=== PATIENT | male | born 2000 | race Caucasian/White ===

== ENCOUNTER 2024-03-01 19:44 | Emergency (ER) | payer SELFPAY ==
--- NOTE | 2024-03-01 20:04 | ED Physician Documentation ---
PD HPI SKIN - Stated complaint Stated Complaint: R THUMB LAC - Chief complaint Chief Complaint: Laceration - Additional information Additional information: 24-year-old male unsure if he is up-to-date with tetanus shot presents emergency department for left thumb laceration. Patient said that his birthday is today he does appear to be intoxicated says that he excellently broke a plate over his left thumb. Bleeding is well-controlled he has full range of motion is having just prior to arrival. PD PAST MEDICAL HISTORY - Past Medical History Past Medical History: No - Past Surgical History Past Surgical History: No - Present Medications Home Medications: Ambulatory Orders Medication Instructions Recorded Confirmed cephALEXin [Keflex] 500 mg PO Q6H 5 Days #28 cap 03/01/24 - Allergies Allergies/Adverse Reactions: Allergies Allergy/AdvReac Type Severity Reaction Status Date / Time No Known Drug Allergies Allergy Verified 03/01/24 19:48 - Social History Does the pt smoke?: Yes Smoking Status: Former smoker Does the pt drink ETOH?: Yes Does the pt have substance abuse?: No - Immunizations Immunizations are current?: No - POLST Patient has POLST: No PD ED PE NORMAL - Vitals Vital signs reviewed: Yes - General General: Alert and oriented X 3, No acute distress, Well developed/nourished, Other (appears intoxicated) - Derm Derm: Other (left thumb laceration over the volar aspect, no involving fingernail, does go over the joint.) - Extremities Extremities: Other (left thumb: full ROM, no tendon involvement.) Results - Vitals Vitals: Vital Signs - 24 hr 03/01/24 03/01/24 19:48 22:04 Temperature 36.5 C 36.2 C L Heart Rate 100 88 Respiratory 16 16 Rate Blood Pressure 140/88 H 126/68 O2 Saturation 100 98 Oxygen O2 Source Room air Procedures - Laceration (location) left thumb laceration Length in cm: 12 (flap laceration over volar aspect of left thumb) Wound type: Curved, Flap, Into subcut fat, Clean Neurovascular status: Sensory intact, Motor intact Tendon involvement: Tendon intact Anesthesia: Lidocaine 2% Wound preparation: Hibiclens, Irrigated copiously NS, Wound explored, To the base Skin layer closure: Nylon, Interrupted, Size #-0 - enter number (4-0), Sutures - enter # (9) Other: No complications, Neurovascular intact, Tetanus booster given, Other (pt had multiple episodes of near vasovagal and nausea) PD Medical Decision Making - ED course ED course: Wound inspected under direct bright light with good visualization. Area with curved laceration across soft tissue through adipose without exposure of muscle belly or tendon. No overt foreign body. Area hemostatic. Considered doing an x- ray but patient declined and said that he wanted to hold off on x-rays and says that he is confident that there is no bony involvement of the laceration he has full range of motion and does not appear to have affected the tendons. Neurovascular exam congruent with above. Area extensively irrigated with sterile normal saline under pressure. Laceration repaired in simple fashion with 9 sutures And was started on Keflex due to the type of wound. (please see procedure note for further details). Patient Had a difficult time tolerating the procedure requiring multiple breaks multiple vasovagal episodes of nausea vomiting due to alcohol intoxication and He was neurovascularly intact and unchanged post repair with intact distal pulses and cap refill. Cautious return precautions discussed w/ full understanding. Wound care discussed. Prompt follow up with primary care physician discussed and return for suture removal in 14 days. And prescription of Keflex was sent to his preferred pharmacy. Departure - Departure Disposition: 01 Home, Self Care Clinical Impression: Finger laceration Instructions: ED Laceration All Prescriptions: cephALEXin [Keflex] 500 mg PO Q6H 5 Days #28 cap Comments: Come back for any signs of infection which would include: Redness, swelling, drainage, increased pain, or fevers. You can wash it soap and water. Keep it covered and moist with bacitracin ointment which is available over the counter; avoid neosporin. Follow-up with your physician in [] days for suture removal. Forms: PCP List Discharge Date/Time: 03/01/24 22:04
[2024-03-01] MEDS: TETANUS/DIPHTHERIA/PERTUSSIS 0.5 ML SYRINGE IM ONE (20:38)
[2024-03-01] MEDS ORDERED: LIDOCAINE-MPF 2% 5 ML VIAL ONE (20:44)
[2024-03-01] MEDS: ONDANSETRON ODT 4 MG TABLET TL STA (21:40)
[2024-03-01] MEDS: ACETAMINOPHEN 500 MG TABLET PO STA (21:40)
[2024-03-01] MEDS: cephALEXin 250 MG CAPSULE PO STA (21:40)
[2024-03-01] MEDS: LIDOCAINE 2% 10 ML MDV SUBQ ONE (21:53)
[2024-03-01] MEDS: BACITRACIN ZINC OINT 1 PACKET TOP STA (21:53)
[2024-03-01 22:10] VITALS: BP 126/68; O2SAT 98
== END 2024-03-01 22:04 | disposition home or self-care (01) ==
LOC: ED 19:44
DX: S61.012A Laceration without foreign body of left thumb without damage to nail, initial encounter (principal); W26.8XXA Contact with other sharp object(s), not elsewhere classified, initial encounter; R55 Syncope and collapse; F10.129 Alcohol abuse with intoxication, unspecified; Z87.891 Personal history of nicotine dependence
CPT/HCPCS: 12004; 90471; 90715; 99283; A9270; Q0162